=== PATIENT | male | born 1980 | race Caucasian/White ===

== ENCOUNTER 2017-02-28 22:02 | Emergency (ER) | payer OTHER ==
[~2017-02-28] VITALS: Ht 180.3 cm; Wt 68.8 kg
[2017-02-28 22:20] VITALS: TEMP 36.5; Ht 180.3 cm; Wt 68.8 kg
[2017-02-28] MEDS ORDERED: KETOROLAC TROMETHAMINE 60 MG/2 ML VIAL IM STA (22:36)
[2017-02-28] MEDS ORDERED: MoRPHine SULFATE 10 MG/ML CARP/VIAL IM STA (22:36)
--- NOTE | 2017-02-28 22:56 | DIAGNOSTIC IMAGING REPORT ---
LUMBAR SPINE RADIOGRAPHS CLINICAL HISTORY: Lower back pain. COMPARISON: Lumbar spine radiographs December 08, 2015. FINDINGS: Alignment of the lumbar spine is anatomic. Vertebral body heights are maintained. There is no fracture or suspicious lesion by radiography. There is possible hemisacralization of the left aspect of L5. Disc spaces are preserved. IMPRESSION: Unremarkable lumbar spine radiographs. Electronically signed by: Russell Kiser M.D. 02/28/2017 10:54 PM Dictated Date/Time: 02/28/2017 10:52 PM
[2017-02-28] MEDS ORDERED: PRED20TA PO (23:26)
[2017-02-28 23:33] VITALS: BP 138/74; PULSE 94; O2SAT 98
--- NOTE | 2017-03-01 01:01 | EMERGENCY ROOM VISIT NOTE ---
History Report prepared by Alonso: Santos Person Under the Supervision of: Felipe JackmanO. First contact with patient: 22:29 Chief Complaint: BACK PAIN Stated Complaint: LOWER BACK PAIN History of Present Illness The patient is a 36 year old male who presents to the Emergency Room with complaints of constant lower back pain beginning prior to arrival. The patient states he has been having back trouble for a while now. 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 He reports he picked the saw up off the ground and since then, his back has been in severe pain. Pt denies headache, change in vision, fevers, chest pain, shortness of breath, nausea, vomiting, diarrhea, pain with urination, trauma, numbness to legs, weakness to legs, a history of cancer, incontinence of urine or stool, and a history of IV drug use. Source of History: patient Onset: prior to arrival Position: back (lower) Symptom Intensity: severe Timing: constant Associated Symptoms: No fevers, No headache, No chest pain, No SOB, No nausea, No vomiting, No diarrhea, No weakness (to legs), No numbness (to legs) Note: Denies: change in vision, pain with urination, trauma, a history of cancer, incontinence of urine or stool, and a history of IV drug use. Review of Systems See HPI for pertinent positives & negatives. A total of 10 systems reviewed and were otherwise negative. Past Medical & Surgical Medical Problems: (1) Kidney stones Family History Cancer Diabetes mellitus Heart disease Hypertension Kidney disease Kidney stones Seizures Social History Smoking Status: Current Every Day Smoker Smokeless Tobacco Use: Yes Alcohol Use: heavy Marital Status: Housing Status: lives with family Occupation Status: unemployed Current/Historical Medications Scheduled Prednisone (Prednisone), 1 TAB PO DAILY Allergies Coded Allergies: No Known Allergies (Unverified , 02/28/17) Physical Exam Vital Signs Date Time Temp Pulse Resp B/P (MAP) Pulse Ox O2 Delivery O2 Flow Rate FiO2 02/28/17 23:33 94 20 138/74 98 02/28/17 22:20 36.5 80 16 144/95 97 Room Air Physical Exam GENERAL: Siting up in bed, disheveled, moderate distress EYE EXAM: normal conjunctiva, PERRL and EOM's grossly intact OROPHARYNX: no exudate, no erythema, lips, buccal mucosa, and tongue normal and mucous membranes are moist NECK: supple, no nuchal rigidity, no adenopathy, non-tender LUNGS: Clear to auscultation. Normal chest wall mechanics HEART: no murmurs, S1 normal and S2 normal ABDOMEN: abdomen soft, non-tender, normo-active bowel sounds, no masses, no rebound or guarding. BACK: Back is symmetrical on inspection and there is no deformity, lower lumbar bilateral paraspinal tenderness upon palpation. SKIN: no rashes and no bruising UPPER EXTREMITIES: upper extremities are grossly normal. LOWER EXTREMITIES: No pitting edema. Flexion and extension of the hip, knee, ankle, and EHL are 5/5 bilateral, gross sensation intact. Unable to relax patient to obtain reflexes. NEURO EXAM: Normal sensorium, cranial nerves II-XII grossly intact, normal speech, no gross weakness of arms, no weakness of legs. Medical Decision & Procedures ER Provider Diagnostic Interpretation: Radiology results as stated below per my review and the radiologist's interpretation: LUMBAR SPINE RADIOGRAPHS CLINICAL HISTORY: Lower back pain. COMPARISON: Lumbar spine radiographs December 08, 2015. FINDINGS: Alignment of the lumbar spine is anatomic. Vertebral body heights are maintained. There is no fracture or suspicious lesion by radiography. There is possible hemisacralization of the left aspect of L5. Disc spaces are preserved. IMPRESSION: Unremarkable lumbar spine radiographs. Electronically signed by: Russell Kiser M.D. 02/28/2017 10:54 PM Dictated Date/Time: 02/28/2017 10:52 PM Medications Administered Medications (Trade) Dose Ordered Sig/Penny Route Start Time Stop Time Status Last Admin Dose Admin Ketorolac Tromethamine (Toradol Inj) 60 mg NOW STAT IM 02/28/17 22:36 02/28/17 22:38 DC 02/28/17 22:57 60 MG Morphine Sulfate (MoRPHine SULFATE INJ) 6 mg NOW STAT IM 02/28/17 22:36 02/28/17 22:38 DC 02/28/17 22:57 6 MG ED Course ED COURSE: Vital signs were reviewed and showed situational hypertension. The patients medical record was reviewed The above diagnostic studies were performed and reviewed. ED treatments and interventions as stated above. 223: The patient was evaluated in room C07. A complete history and physical examination was performed. 2236: Ordered Morphine Sulfate 6mg IM, Ketorolac Tromethamine 60mg IM 2322: Upon reevaluation, the patient is resting comfortably and able to ambulate to the bathroom. I discussed my findings with the patient and he understands and agrees with the treatment plan. Based on the patients age, coexisting illnesses, exam and lab findings the decision to treat as an outpatient was made. The patient remained stable while under my care. The patient appeared well at the time of discharge. Medical Decision Differential diagnoses includes but is not limited to lumbar radiculopathy, muscle strain, facture, cauda equina, mass, and disc herniation. Patient is a 36-year-old male who presents to ER for severe lower back pain. He notes this started all lifting a heavy object. No weakness or numbness in the legs. Able to void. No numbness in groin. No signs of cauda equina. Neurologically intact. X-rays of lumbar spine were negative. No IV drug use. No fevers. No trauma. Patient was given IM Toradol and morphine. He felt significantly better. Able to ambulate. Patient was discharged with steroids as he has some intermittent pain shooting down right lower extremity. Instructed to follow up with PCP. Discussed with Pt concerning signs and symptoms to watch out for. Pt was instructed to follow up with their PCP and discussed with the patient their option to return to the ED at anytime for persistent or worsening symptoms. The appropriate anticipatory guidance and out- patient management, including indications for return to the emergency department , were explained at length to the patient and understood. Medication Reconcilliation Current Medication List: was personally reviewed by me Blood Pressure Screening Patient's blood pressure: Elevated blood pressure Blood pressure disposition: Elevated BP felt to be situational Impression Primary Impression: Back pain Scribe Attestation The scribe's documentation has been prepared under my direction and personally reviewed by me in its entirety. I confirm that the note above accurately reflects all work, treatment, procedures, and medical decision making performed by me. Departure Information Dispostion Home / Self-Care Prescriptions Prednisone (Prednisone) 20 Mg Tab 1 TAB PO DAILY for 5 Days, #5 TAB Prov: Nilson Gamboa, 02/28/17 Referrals Young Vergara M.D. (PCP) Forms HOME CARE DOCUMENTATION FORM, IMPORTANT VISIT INFORMATION Patient Instructions Back Pain - [facility], My [facility] Additional Instructions Please follow up with your primary care doctor with in the next 24 hours. Any worsening of your symptoms, please return to the ED immediately. This includes any fevers greater than 100.4, worsening pain, weakness or numbness in the arms or legs, numbness in her groin, unable to move your bowels, unable to urinate, chest pain, shortness breath, persistent nausea, vomiting, unable to eat or drink, or any other concerning signs or symptoms from your standpoint. Problem Qualifiers Primary Impression: Back pain Back pain location: low back pain Chronicity: acute Back pain laterality: midline Sciatica presence: with sciatica Sciatica laterality: sciatica of right side Qualified Codes: M54.41 - Lumbago with sciatica, right side
== END 2017-02-28 23:34 | disposition home or self-care (01) ==
LOC: C.EDB 22:21 → C.EDC 23:34
DX: M54.41 Lumbago with sciatica, right side (principal); F17.200 Nicotine dependence, unspecified, uncomplicated; Z87.442 Personal history of urinary calculi; Z83.3 Family history of diabetes mellitus; Z82.49 Family history of ischemic heart disease and other diseases of the circulatory system; Z84.1 Family history of disorders of kidney and ureter; Z82.0 Family history of epilepsy and other diseases of the nervous system

== ENCOUNTER 2017-08-22 09:59 | Emergency (ER) | payer OTHER ==
[~2017-08-22] VITALS: Ht 180.3 cm; Wt 66.1 kg
[2017-08-22 10:15] VITALS: TEMP 36.5; Ht 180.3 cm; Wt 66.1 kg
[2017-08-22] MEDS ORDERED: CYCLOBENZAPRINE HCL 10 MG TAB PO STA (10:25)
[2017-08-22] MEDS ORDERED: ACETAMINOPHEN 500 MG TAB PO STA (10:25)
[2017-08-22] MEDS ORDERED: IBUPROFEN 600 MG TAB PO STA (10:25)
--- NOTE | 2017-08-22 10:29 | EMERGENCY ROOM VISIT NOTE ---
History Report prepared by Nanyibe: Karina Marsh Under the Supervision of: Dr. Bruce Brannon M.D. First contact with patient: 10:20 Chief Complaint: BACK PAIN Stated Complaint: LOWER BACK PAIN,DIARRHEA History of Present Illness The patient is a 37 year old male who presents to the Emergency Room with complaints of worsening bilateral lower back pain for the past 2 weeks. He rates his pain as a 9/10 in severity. Ice, heat, Icy Hot cream, Aleve and Ibuprofen have provided minimal relief. Movement worsens his pain. There is no radiation down his legs or numbness in his groin. He denies any recent falls, injuries or physical trauma. He did go fishing with his children 2 days ago, which really aggravated his discomfort. He notes he has been seeing a chiropractor for his pain and underwent an alignment yesterday morning which helped to relieve some of the discomfort. The patient also reports he had been constipated recently and took a Laxative yesterday, which then resulted in diarrhea. Source of History: patient Onset: 2 weeks [employer]AG RO[employer] Position: back (lower) Symptom Intensity: 9/10 Timing: worsening Modifying Factors (Worsening): movement Modifying Factors (Relieving): ibuprofen, ice, heat, other (Aspirin, Icy Hot cream) Associated Symptoms: + diarrhea, No numbness (in the groin) Review of Systems See HPI for pertinent positives & negatives. A total of 10 systems reviewed and were otherwise negative. Past Medical & Surgical Medical Problems: (1) ACL (anterior cruciate ligament) tear (2) Kidney stones Family History Cancer Diabetes mellitus Heart disease Hypertension Kidney disease Kidney stones Seizures Social History Smoking Status: Current Every Day Smoker Alcohol Use: heavy Drug Use: none Marital Status: Housing Status: lives with family Occupation Status: unemployed Current/Historical Medications Scheduled PRN Cyclobenzaprine Hcl (Flexeril), 10 MG PO TID PRN for Muscle Spasms Allergies Coded Allergies: No Known Allergies (Unverified , 02/28/17) Physical Exam Vital Signs Date Time Temp Pulse Resp B/P (MAP) Pulse Ox O2 Delivery O2 Flow Rate FiO2 18 10:15 36.5 70 17 138/91 99 Room Air Physical Exam GENERAL: Patient is in no acute distress. HEENT: No acute trauma, normocephalic atraumatic, mucous membranes moist, no nasal congestion, no scleral icterus. NECK: No stridor, no adenopathy, no meningismus, trachea is midline. LUNGS: Clear to auscultation bilaterally, no wheeze, no rhonchi, breath sounds equal. HEART: Without murmurs gallops or rubs, regular rate and rhythm. BACK: No bony step off or focal bony discomfort. Notable spasm to muscles of the lumbar spine bilaterally, pain worsens with movement. ABDOMEN: Soft, nontender, bowel sounds positive, no hernias, no peritonitis. EXTREMITIES: No cyanosis or edema, full range of motion of all the joints without pain or difficulty, no signs for acute trauma. NEUROLOGIC: Oriented x 3, no acute motor or sensory deficits, no focal weakness. Equal and normal patellar reflexes bilaterally. SKIN: No rash, no jaundice, no diaphoresis. Medical Decision & Procedures ED Course 1020: The patient was evaluated in room C2. A complete history and physical exam was performed. 1025: Acetaminophen 1000 mg PO, Ibuprofen 600 mg PO, Flexeril 10 mg PO. 1030: Oxycodone HCl 5 mg 1 homepack PO. 1035: I reevaluated the patient. He is feeling well and is ready to go home. I discussed his discharge instructions and he verbalized complete understanding and agreement. Medical Decision The differential diagnoses considered include lumbar strain, lumbar fracture, disc disease, nerve impingement and disc herniation. Patient presents with bilateral lower back pain. On exam, the muscles are clearly in spasm. His pain worsens with movement. There has been no trauma or fall. He is not febrile. No pain radiation to his legs. Reflexes in the patella are intact bilaterally. The patient is being discharged with muscle relaxers. He was given a home pack of oxycodone to use for severe pain, primarily at night to help with sleep. He was instructed to keep using the Motrin and then to add some Tylenol, heat and rest were advised. If things are worsening, he can return. I do not feel films of the area are needed as no trauma was reported. Medication Reconcilliation Current Medication List: was personally reviewed by me Blood Pressure Screening Patient's blood pressure: Elevated blood pressure Blood pressure disposition: Elevated BP felt to be situational Impression Primary Impression: Lower back pain Scribe Attestation The scribe's documentation has been prepared under my direction and personally reviewed by me in its entirety. I confirm that the note above accurately reflects all work, treatment, procedures, and medical decision making performed by me. Departure Information Dispostion Home / Self-Care Prescriptions Cyclobenzaprine Hcl (FLEXERIL) 10 Mg Tab 10 MG PO TID Y for Muscle Spasms, #21 TAB Prov: Bruce Brannon M.D. 08/22/17 Referrals Young Vergara M.D. (PCP) Patient Instructions My [facility] Additional Instructions flexeril 1 tab 3x per day for 1 week oxy ir 1 tab as needed for severe pain--maybe before bed motrin 600 mg 3x per day for 1 week tylenol 1 gram 3x per day for 1 week heat and rest no lifting or stooping see chiropractor as scheduled return if worsening
[2017-08-22] MEDS ORDERED: CYCL10TA6 PO (10:30)
[2017-08-22] MEDS ORDERED: OXYCODONE IR HOME PACK PO ONE (10:30)
[2017-08-22 11:01] VITALS: BP 141/85; PULSE 74; O2SAT 99
== END 2017-08-22 11:00 | disposition home or self-care (01) ==
LOC: C.EDB 10:00 → C.EDC 11:00
DX: M54.5 Low back pain (principal); R19.7 Diarrhea, unspecified; F17.200 Nicotine dependence, unspecified, uncomplicated

== ENCOUNTER 2017-08-25 16:35 | Emergency (ER) | payer OTHER ==
[~2017-08-25] VITALS: Ht 180.3 cm; Wt 68.4 kg
[~2017-08-25 16:35] MED LIST: CYCL10TA6 PO
[2017-08-25 16:39] VITALS: TEMP 36.6; Ht 180.3 cm; Wt 68.4 kg
[2017-08-25] MEDS ORDERED: MoRPHine SULFATE 4 MG/ML 1 ML CARP\\VIAL IV STA (16:54)
[2017-08-25] MEDS ORDERED: ONDANSETRON INJ 2 MG/ML 2 ML VIAL IV STA (16:54)
[2017-08-25 17:17] LABS: BASO % 0.5 %; BASO ABS # 0.05 K/uL (0-0.2); EOS % 1.6 %; EOS ABS # 0.15 K/uL (0-0.5); HEMATOCRIT 45.2 % (42-52); HEMOGLOBIN 16.3 g/dL (14.0-18.0); IG# 0.03 K/uL (0.00-0.02); LYMPH % 25.1 %; LYMPH ABS # 2.41 K/uL (1.2-3.4); MEAN CELL VOLUME 90.6 fL (80-100); MEAN CORPUSCULAR HEMOGLOBIN 32.7 pg (25-34); MEAN CORPUSCULAR HGB CONC 36.1 g/dl (32-36); MEAN PLATELET VOLUME 11.1 fL (7.4-10.4); MONO % 9.3 %; MONO ABS # 0.89 K/uL (0.11-0.59); NEUT % 63.2 %; NEUT ABS # 6.09 K/uL (1.4-6.5); PLATELET COUNT 202 K/uL (130-400); RED CELL DISTRIBUTION WIDTH SD 39.4 fL (36.4-46.3); WHITE BLOOD COUNT 9.62 K/uL (4.8-10.8)
[2017-08-25] MEDS ORDERED: NAPR-1169 PO (17:25)
[2017-08-25] MEDS ORDERED: TAMS0.4C38 PO (17:25)
[2017-08-25 17:37] LABS: ALBUMIN 4.5 gm/dl (3.4-5.0); CALCIUM 8.4 mg/dl (8.5-10.1); CREATININE 0.87 mg/dl (0.60-1.40); POTASSIUM 3.9 mmol/L (3.5-5.1)
--- NOTE | 2017-08-25 19:20 | DIAGNOSTIC IMAGING REPORT ---
LUMBAR SPINE WITHOUT CLINICAL HISTORY: Lower back pain. COMPARISON STUDY: Lumbar spine radiographs February 28, 2017. TECHNIQUE: Axial images of the lumbar spine were obtained without IV contrast. Sagittal and coronal reconstructions were viewed. The CT of the abdomen and pelvis will be reported separately. FINDINGS: Alignment of the lumbar spine is anatomic. The left aspect of L5 is hemisacralized. There is no acute lumbar spine fracture or suspicious lesion by CT. Disc spaces are preserved. Central canal and neural foramen are suboptimally assessed by CT but there is no evidence for significant central canal stenosis on this exam. There is no evidence for severe neural foraminal stenosis. Paravertebral soft tissues are unremarkable. Sacroiliac joints are intact. IMPRESSION: 1. No acute lumbar spine fracture or subluxation. 2. Unremarkable unenhanced CT of the lumbar spine. Electronically signed by: Russell Kiser M.D. 08/25/2017 7:19 PM Dictated Date/Time: 08/25/2017 7:12 PM
--- NOTE | 2017-08-25 20:16 | DIAGNOSTIC IMAGING REPORT ---
CT OF THE ABDOMEN AND PELVIS WITHOUT CONTRAST, STONE PROTOCOL CLINICAL HISTORY: Bilateral flank pain. Painful urination. COMPARISON STUDY: CT of the abdomen and pelvis July 25, 2015. TECHNIQUE: Helical axial images of the abdomen and pelvis were obtained without IV or oral contrast according to renal stone protocol. A dose lowering technique was utilized adhering to the principles of ALARA. FINDINGS: A lucent lesion within the intertrochanteric portion of the left femur is unchanged from prior CT. This has benign imaging characteristics. Lung bases are unremarkable with the exception of subsegmental atelectasis. No renal, ureteral or bladder calculi are present. There is no hydronephrosis or hydroureter. There is no perinephric infiltration. Evaluation of the abdomen and pelvis is suboptimal on this unenhanced exam. The liver, spleen, adrenal glands and pancreas are normal. There is no evidence for a bowel obstruction. The appendix is normal. A fluid within the pelvis is similar to prior CT of July 25, 2015. There are no suspicious osseous lesions. No pneumatosis, free air or portal venous gas is present. IMPRESSION: 1. No urinary calculi or hydronephrosis. 2. No bowel obstruction. Normal appendix. 3. Trace fluid within the pelvis which is similar to CT of July 25, 2015. Electronically signed by: Russell Kiser M.D. 08/25/2017 7:24 PM Dictated Date/Time: 08/25/2017 7:19 PM
[2017-08-25] MEDS ORDERED: CIPROFLOXACIN 500 MG TAB PO STA (20:29)
[2017-08-25] MEDS ORDERED: CIPR-255 PO (20:35)
[2017-08-25] MEDS ORDERED: OXYCODONE IR HOME PACK PO ONE (20:45)
[2017-08-25 21:03] VITALS: BP 122/76; PULSE 82; O2SAT 96
--- NOTE | 2017-08-25 23:21 | EMERGENCY ROOM VISIT NOTE ---
History Report prepared by Alonso: Sarah Brown Under the Supervision of: Dr. King Capone M.D. First contact with patient: 16:46 Chief Complaint: BACK PAIN Stated Complaint: LOWER BACK PAIN, HURTS TO GO TO BATHROOM History of Present Illness The patient is a 37 year old male who presents to the Emergency Room with complaints of constant bilateral lower back pain starting 2 weeks ago. The patient was seen in the ED and was diagnosed with muscle spasms. He went to see a chiropractor yesterday who did not think the pain was due to muscle spasm. He went to see his PCP and had a urinalysis and kidney ultrasound. He has not yet seen the results. The pain has been worsening. It worsens with moving around. He is having burning in his penis with urination. He has been urinating more frequently because he was told to drink more water. He has been waking up in a cold sweat. He denies any fever, vomiting, leg pain, numbness, weakness, incontinence, rash, or penile discharge. He denies any fall or injury. He is sexually active with his only. Source of History: patient Onset: 2 weeks ago Position: back (lower) Timing: constant, worsening Modifying Factors (Worsening): movement Associated Symptoms: + diaphoresis, + urinary symptoms, No fevers, No vomiting, No weakness, No numbness, No rash Note: Pt denies leg pain, incontinence, penile discharge. Review of Systems See HPI for pertinent positives & negatives. A total of 10 systems reviewed and were otherwise negative. Past Medical & Surgical Medical Problems: (1) ACL (anterior cruciate ligament) tear (2) Kidney stones Family History Cancer Diabetes mellitus Heart disease Hypertension Kidney disease Kidney stones Seizures Social History Smoking Status: Current Every Day Smoker Drug Use: none Marital Status: Housing Status: lives with family Current/Historical Medications Scheduled Ciprofloxacin Hcl (Cipro), 500 MG PO BID Naproxen (Naprosyn), 500 MG PO BID Tamsulosin Hcl (Flomax), 0.4 MG PO DAILY Allergies Coded Allergies: No Known Allergies (Unverified , 08/22/17) Physical Exam Vital Signs Date Time Temp Pulse Resp B/P (MAP) Pulse Ox O2 Delivery O2 Flow Rate FiO2 08/25/17 21:03 82 20 122/76 96 08/25/17 19:16 76 20 118/78 96 Room Air 08/25/17 18:08 72 16 120/84 99 Room Air 08/25/17 16:39 36.6 84 18 146/86 96 Room Air Physical Exam Constitutional: Vital signs reviewed. Eyes: Pupils are equal round reactive to light. Conjunctiva are noninjected. ENT: Pharynx is clear without erythema or exudate. Mucous membranes are moist. Neck supple without meningeal signs. Respiratory: Clear to auscultation bilaterally. Breath sounds are equal bilaterally. Cardiovascular: Regular rate and rhythm. No rubs or gallops. GI: Soft, nondistended. Suprapubic tenderness. No guarding. Bowel sounds are present. Musculoskeletal: No peripheral edema. No lower extremity tenderness. No midline tenderness to the thoracic and lumbosacral spine. Bilateral CVA tenderness. Integumentary: No cyanosis. Neurological: The patient is awake and alert. No focal deficits. Psychiatric: Normal affect. Rectal: Prostatic tenderness. Medical Decision & Procedures ER Provider Diagnostic Interpretation: Radiology results as stated below per my review and the radiologist's interpretation: CT OF THE ABDOMEN AND PELVIS WITHOUT CONTRAST, STONE PROTOCOL CLINICAL HISTORY: Bilateral flank pain. Painful urination. COMPARISON STUDY: CT of the abdomen and pelvis July 25, 2015. TECHNIQUE: Helical axial images of the abdomen and pelvis were obtained without IV or oral contrast according to renal stone protocol. A dose lowering technique was utilized adhering to the principles of ALARA. FINDINGS: A lucent lesion within the intertrochanteric portion of the left femur is unchanged from prior CT. This has benign imaging characteristics. Lung bases are unremarkable with the exception of subsegmental atelectasis. No renal, ureteral or bladder calculi are present. There is no hydronephrosis or hydroureter. There is no perinephric infiltration. Evaluation of the abdomen and pelvis is suboptimal on this unenhanced exam. The liver, spleen, adrenal glands and pancreas are normal. There is no evidence for a bowel obstruction. The appendix is normal. A fluid within the pelvis is similar to prior CT of July 25, 2015. There are no suspicious osseous lesions. No pneumatosis, free air or portal venous gas is present. IMPRESSION: 1. No urinary calculi or hydronephrosis. 2. No bowel obstruction. Normal appendix. 3. Trace fluid within the pelvis which is similar to CT of July 25, 2015. Electronically signed by: Russell Kiser M.D. 08/25/2017 7:24 PM Dictated Date/Time: 08/25/2017 7:19 PM LUMBAR SPINE WITHOUT CLINICAL HISTORY: Lower back pain. COMPARISON STUDY: Lumbar spine radiographs February 28, 2017. TECHNIQUE: Axial images of the lumbar spine were obtained without IV contrast. Sagittal and coronal reconstructions were viewed. The CT of the abdomen and pelvis will be reported separately. FINDINGS: Alignment of the lumbar spine is anatomic. The left aspect of L5 is hemisacralized. There is no acute lumbar spine fracture or suspicious lesion by CT. Disc spaces are preserved. Central canal and neural foramen are suboptimally assessed by CT but there is no evidence for significant central canal stenosis on this exam. There is no evidence for severe neural foraminal stenosis. Paravertebral soft tissues are unremarkable. Sacroiliac joints are intact. IMPRESSION: 1. No acute lumbar spine fracture or subluxation. 2. Unremarkable unenhanced CT of the lumbar spine. Electronically signed by: Russell Kiser M.D. 08/25/2017 7:19 PM Dictated Date/Time: 08/25/2017 7:12 PM Laboratory Results 08/25/17 17:09 Red Blood Count 4.99, Mean Corpuscular Volume 90.6, Mean Corpuscular Hemoglobin 32.7, Mean Corpuscular Hemoglobin Concent 36.1, Mean Platelet Volume 11.1, Neutrophils (%) (Auto) 63.2, Lymphocytes (%) (Auto) 25.1, Monocytes (%) (Auto) 9.3, Eosinophils (%) (Auto) 1.6, Basophils (%) (Auto) 0.5, Neutrophils # (Auto) 6.09, Lymphocytes # (Auto) 2.41, Monocytes # (Auto) 0.89, Eosinophils # (Auto) 0.15, Basophils # (Auto) 0.05 08/25/17 17:09 Test 08/25/17 17:00 08/25/17 17:09 Urine Color YELLOW Urine Appearance CLEAR (CLEAR) Urine pH 6.5 (4.5-7.5) Urine Specific [place] 1.009 (1.000-1.030) Urine Protein NEG (NEG) Urine Glucose (UA) NEG (NEG) Urine Ketones NEG (NEG) Urine Occult Blood NEG (NEG) Urine Nitrite NEG (NEG) Urine Bilirubin NEG (NEG) Urine Urobilinogen NEG (NEG) Urine Leukocyte Esterase NEG (NEG) White Blood Count 9.62 K/uL (4.8-10.8) Red Blood Count 4.99 M/uL (4.7-6.1) Hemoglobin 16.3 g/dL (14.0-18.0) Hematocrit 45.2 % (42-52) Mean Corpuscular Volume 90.6 fL (80-100) Mean Corpuscular Hemoglobin 32.7 pg (25-34) Mean Corpuscular Hemoglobin Concent 36.1 g/dl (32-36) Platelet Count 202 K/uL (130-400) Mean Platelet Volume 11.1 fL (7.4-10.4) Neutrophils (%) (Auto) 63.2 % Lymphocytes (%) (Auto) 25.1 % Monocytes (%) (Auto) 9.3 % Eosinophils (%) (Auto) 1.6 % Basophils (%) (Auto) 0.5 % Neutrophils # (Auto) 6.09 K/uL (1.4-6.5) Lymphocytes # (Auto) 2.41 K/uL (1.2-3.4) Monocytes # (Auto) 0.89 K/uL (0.11-0.59) Eosinophils # (Auto) 0.15 K/uL (0-0.5) Basophils # (Auto) 0.05 K/uL (0-0.2) RDW Standard Deviation 39.4 fL (36.4-46.3) RDW Coefficient of Variation 12.0 % (11.5-14.5) Immature Granulocyte % (Auto) 0.3 % Immature Granulocyte # (Auto) 0.03 K/uL (0.00-0.02) Anion Gap 6.0 mmol/L (3-11) Est Creatinine Clear Calc Drug Dose 113.6 ml/min Estimated GFR () 128.7 Estimated GFR (Non- 111.0 BUN/Creatinine Ratio 7.5 (10-20) Calcium Level 8.4 mg/dl (8.5-10.1) Total Bilirubin 0.6 mg/dl (0.2-1) Direct Bilirubin 0.1 mg/dl (0-0.2) Aspartate Amino Transf (AST/SGOT) 18 U/L (15-37) Alanine Aminotransferase (ALT/SGPT) 30 U/L (12-78) Alkaline Phosphatase 85 U/L (45-117) Total Protein 7.0 gm/dl (6.4-8.2) Albumin 4.5 gm/dl (3.4-5.0) Lipase 249 U/L (73-393) Laboratory results as reviewed by me. Medications Administered Medications (Trade) Dose Ordered Sig/Penny Route Start Time Stop Time Status Last Admin Dose Admin Morphine Sulfate (MoRPHine SULFATE INJ) 4 mg ONE STAT IV 08/25/17 16:54 08/25/17 16:55 DC 08/25/17 17:09 4 MG Ondansetron HCl (Zofran Inj) 4 mg NOW STAT IV 08/25/17 16:54 08/25/17 16:55 DC 08/25/17 17:09 4 MG Ciprofloxacin (Cipro Tab) 500 mg NOW STAT PO 08/25/17 20:29 08/25/17 20:31 DC 08/25/17 20:58 500 MG Oxycodone HCl (Roxicodone Immediate Rel 5MG Home Pack) 1 homepack UD ONCE PO 08/25/17 20:45 08/25/17 20:46 DC 08/25/17 20:58 1 HOMEPACK ED Course 1647: The patient was evaluated in room A10. A complete history and physical exam was performed. 1653: Zofran Inj 4 mg IV, Morphine Sulfate 4 mg IV. 1841: I reevaluated the patient. He feels much better now. I discussed the test results with him including from yesterday. After discussion, he agrees to CT scan of abdomen. 2026: I reevaluated the patient. I discussed the test results with him. I performed a prostate exam which showed tenderness throughout his prostate exam. He will be treated for presumed prostatitis. I discussed the risks of Cipro as well as offered ureteral swab which he declined. He verbalized agreement of the treatment plan. He was discharged home. 2028: Ciprofloxacin 500 mg PO. 2044: Oxycodone HCl 1 homepack PO. Medical Decision This is a 37-year-old male who presents with back pain and dysuria. Differential diagnosis includes UTI, pyelonephritis, urethritis, kidney stone, pancreatitis, prostatitis. I did perform a limited focused review of portions of the patient's old chart on the electronic medical record. The patient was seen here on the for bilateral lower back pain for 2 weeks. He was treated with oxycodone and Flexeril and discharged with a prescription for Flexeril. Urine culture from [facility] did not show any significant growth. Ultrasound of kidneys demonstrates no hydronephrosis or calculi. I did evaluate the patient as noted above. Patient is presenting with bilateral lower back pain. He has also developed urinary symptoms with frequency and burning on urination. He declined urethral swab for GC and chlamydia stating that he is monogamous with his . He does state his back pain is worse with movement but he does have CVA tenderness bilaterally. IV access was established. I did treat the patient with IV morphine and Zofran. I did order and personally review the patient's urine analysis as described above. I did order and review the patient's blood work as noted in the electronic medical record. After discussion with the patient, I did order a CT of the abdomen and pelvis and lumbosacral spine. I did review the images myself as well as the radiology report as described above. There is no evidence of acute abnormality. I did reassess the patient. He is feeling much better. At this time the cause of his symptoms is unclear. His blood work is unremarkable and his urine does not show any signs of infection. I did perform a prostate examination which showed significant tenderness to the prostate gland. After discussion with the patient I did decide to treat patient empirically for possible prostatitis. As a diagnosis was not clear I only gave him a 2 week prescription for Cipro and he will follow-up with his doctor or urology for further determination whether he needs the full 6 week course. The patient was happy with this plan. He was advised to follow-up with his doctor and/or Dr. Koroma of urology. He was given a prescription for a two-week course of Cipro and given precautions regarding this medication. He was also given oxycodone home pack and given precautions regarding this medication. Medication Reconcilliation Current Medication List: was personally reviewed by me Blood Pressure Screening Patient's blood pressure: Elevated blood pressure Blood pressure disposition: Referred to PCP Impression Primary Impression: Low back pain Additional Impression: Dysuria Scribe Attestation The scribe's documentation has been prepared under my direct and personally reviewed by me in its entirety. I confirm that the note above accurately reflects all work, treatment, procedures, and medical decision making performed by me. Departure Information Dispostion Home / Self-Care Prescriptions Ciprofloxacin Hcl (CIPRO) 500 Mg Tab 500 MG PO BID, #28 TAB Prov: King Capone M.D. 08/25/17 Referrals Young Vergara M.D. (PCP) Arias Koroma MD, Urology Forms HOME CARE DOCUMENTATION FORM, IMPORTANT VISIT INFORMATION Patient Instructions My [facility] Additional Instructions You have been examined and treated today on an emergency basis only. This is not a substitute for, or an effort to provide, complete comprehensive medical care. It is impossible to recognize and treat all injuries or illnesses in a single emergency department visit. It is therefore important that you follow up closely with your physician or Dr. Arias Koroma of urology. Call as soon as possible for an appointment. Return for worsening symptoms or if you develop fever, vomiting, loss of control of your bowel or bladder, numbness or weakness to your legs, numbness to your private area, or any other concerning symptoms. You are being treated for potential bacterial prostatitis. Normally treatment is for 6 weeks with antibiotics. You have been given a 2 week prescription for antibiotics. Make sure you follow-up with your doctor or urology within that time. For clinical reevaluation to determine whether or not your symptoms are truly from bacterial prostatitis and whether you need to continue antibiotic therapy for the full 6 weeks. Problem Qualifiers Primary Impression: Low back pain Chronicity: acute Back pain laterality: bilateral Sciatica presence: without sciatica Qualified Codes: M54.5 - Low back pain
== END 2017-08-25 21:04 | disposition home or self-care (01) ==
LOC: C.EDB 16:35 → C.EDA 21:04
DX: M54.5 Low back pain (principal); R30.0 Dysuria; Z83.3 Family history of diabetes mellitus; Z82.49 Family history of ischemic heart disease and other diseases of the circulatory system; Z82.0 Family history of epilepsy and other diseases of the nervous system; F17.200 Nicotine dependence, unspecified, uncomplicated; Z79.899 Other long term (current) drug therapy